=== PATIENT | male | born 1970 | race Caucasian/White ===

== ENCOUNTER 2016-09-24 12:49 | Observation (INO) | payer OTHER, SELFPAY ==
[2016-09-24] MEDS ORDERED: Sodium Chloride 0.9% 1,000 ML IV STA (13:31)
[2016-09-24 13:56] LABS: BASO % 0.2 % (0.0-2.0); EOS # 0.1 K/uL (0.0-0.7); EOS % 1.8 % (0.0-4.0); HEMOGLOBIN 17.8 g/dL (12.0-18.0); LYMPH # 1.3 K/uL (1.0-4.3); LYMPH % 21.8 % (20.0-40.0); MEAN CELL VOLUME 93.2 fl (80.0-94.0); MEAN CORPUSCULAR HGB CONC 34.3 g/dL (33.0-37.0); MEAN PLATELET VOLUME 7.7 fl (7.2-11.7); MONO # 0.4 K/uL (0.0-0.8); MONO % 6.5 % (0.0-10.0); NEUT # 4.2 K/uL (1.8-7.0); NEUT % 69.7 % (50.0-75.0); NRBC % 0.3 % (0.0-0.0); RBC 5.57 Mil/uL (4.40-5.90); RED CELL DISTRIBUTION WIDTH 13.4 % (11.5-14.5)
--- NOTE | 2016-09-24 14:08 | ED PDOC ---
HPI: General Adult Time Seen by Provider: 09/24/16 12:55 Chief Complaint (Nursing): Dizziness/Lightheaded History Per: Patient Additional Complaint(s): Pt. states for the past 2 weeks he's had dizziness described as him spinning. Reports that when he stops from a moving position he still feels as if he is moving. Also reports having blurry vision to both eyes along with the dizziness. Denies head injury, recent illness, hearing changes, tinnitus, fever , headache, pain, chest pain, palpitations. Past Medical History Reviewed: Historical Data, Nursing Documentation, Vital Signs Vital Signs: Last Vital Signs Temp 98.3 F 09/24/16 14:23 Pulse 77 09/24/16 14:23 Resp 19 09/24/16 14:23 BP 139/78 09/24/16 14:23 Pulse Ox 97 09/24/16 14:23 - Medical History PMH: HTN - Family History Family History: States: No Known Family Hx - Immunization History Hx Tetanus Toxoid Vaccination: No Hx Influenza Vaccination: No Hx Pneumococcal Vaccination: No - Home Medications Home Medications: Ambulatory Orders Medication Instructions Recorded Enalapril Maleate [Vasotec] 10 mg PO DAILY #30 tab 12/24/13 Cyclobenzaprine HCl [Flexeril] 10 mg PO HS #10 tab 06/15/14 Ibuprofen [Motrin] 600 mg PO Q6 PRN #20 tab 06/15/14 Oxycodone HCl/Acetaminophen 1 tab PO Q4 #10 tab 06/15/14 [Percocet 325 mg-5 mg] Meclizine [Meclizine*] 1 - 2 tab PO Q6 PRN #15 tab 09/24/16 - Allergies Allergies/Adverse Reactions: Allergies Allergy/AdvReac Type Severity Reaction Status Date / Time No Known Allergies Allergy Verified 09/24/16 12:51 Review of Systems ROS Statement: Except As Marked, All Systems Reviewed And Found Negative Neurological: Positive for: Dizziness Physical Exam - Reviewed Nursing Documentation Reviewed: Yes Vital Signs Reviewed: Yes - Physical Exam Appears: Positive for: Well, Non-toxic, No Acute Distress Head Exam: Positive for: ATRAUMATIC, NORMAL INSPECTION, NORMOCEPHALIC Skin: Positive for: Normal Color, Warm, DRY Eye Exam: Positive for: Normal appearance, EOMI, PERRL. Negative for: Nystagmus ENT: Positive for: Normal ENT Inspection Neck: Positive for: Normal, Painless ROM Cardiovascular/Chest: Positive for: Regular Rate, Rhythm Respiratory: Positive for: CNT, Normal Breath Sounds Gastrointestinal/Abdominal: Positive for: Normal Exam, Bowel Sounds, Soft. Negative for: Tenderness Back: Positive for: Normal Inspection Extremity: Positive for: Normal ROM Neurologic/Psych: Positive for: Alert, Oriented, Gait (steady, unassisted). Negative for: Aphasia, Facial Droop - Laboratory Results Result Diagrams: 09/24/16 13:25 09/24/16 13:25 - ECG O2 Sat by Pulse Oximetry: 99 - Progress ED Course And Treament: Labs ordered. CT head w/o contrast ordered. IV NS bolus x 1, antivert 50mg PO given. ED OBSERVATION Discharge: Yes Date of observation admission: 09/24/16 Time of observation admission: 17:11 - Observation admission statement Patient is being placed in observation because:: dizziness - Progress Note Progress Note: 09/24/16 15:[address] results. Resting comfortably. 09/24/16 17:11 CT head w/o contrast: negative Reports complete relief of symptoms. Repeat neuro exam is non-focal. Gait steady unassisted. Informed of [employer] and need for ENT f/u. Pt. will be prescribed antivert. Disposition - Clinical Impression Clinical Impression: Dizziness - Patient ED Disposition Is Patient to be Admitted: No - Disposition Referrals: Annalise Philip [Outside] Disposition: Routine/Home Disposition Time: 17:12 Condition: IMPROVED Prescriptions: Meclizine [Meclizine*] 1 - 2 tab PO Q6 PRN #15 tab PRN Reason: Dizziness Instructions: Benign Paroxysmal Positional Vertigo (ED) Forms: [employer] (Surinamese) Print Language: SAMOAN
[2016-09-24 14:24] VITALS: BP 139/78; PULSE 77; RESP 19; TEMP 98.3
[2016-09-24 14:32] LABS: ALB/GLOB RATIO 1.4 (1.0-2.1); ALBUMIN 4.5 g/dL (3.5-5.0); ALT/SGPT 57 U/L (21-72); AST/SGOT 55 U/L (17-59); BLOOD UREA NITROGEN 13 mg/dl (9-20); CALCIUM 9.2 mg/dL (8.4-10.2); GFR AFRICAN-AMERICAN > 60; GFR NON-AFRICAN AMERICAN > 60
--- NOTE | 2016-09-24 16:36 | CT ---
PROCEDURE: CT HEAD WITHOUT CONTRAST. HISTORY: dizziness COMPARISON: None available. TECHNIQUE: Axial computed tomography images were obtained through the head/brain without intravenous contrast. Radiation dose: Total exam DLP = 865.00 mGy-cm. This CT exam was performed using one or more of the following dose reduction techniques: Automated exposure control, adjustment of the mA and/or kV according to patient size, and/or use of iterative reconstruction technique. FINDINGS: HEMORRHAGE: No intracranial hemorrhage. BRAIN: No mass effect or edema. No atrophy or chronic microvascular ischemic changes. VENTRICLES: Unremarkable. No hydrocephalus. CALVARIUM: Unremarkable. PARANASAL SINUSES: Unremarkable as visualized. No significant inflammatory changes. MASTOID AIR CELLS: Unremarkable as visualized. No inflammatory changes. OTHER FINDINGS: None. IMPRESSION: No acute intracranial abnormalities. No significant findings to account for the clinical presentation. No significant interval change compared to the prior examination(s).
[2016-09-24 17:15] VITALS: O2SAT 99
--- NOTE | 2016-09-25 14:20 | CARD ---
APPROVED REPORT EKG Measurement Heart [id number] <Conclusion> Normal sinus rhythm Normal ECG
== END 2016-09-24 17:14 | disposition home or self-care (01) ==
LOC: H.ER 12:49 → H.EROBSV 13:30
PROVIDERS: ADMIT Emergency Medicine; ATTEND Emergency Medicine
DX: H81.10 Benign paroxysmal vertigo, unspecified ear (principal); I10 Essential (primary) hypertension